=== PATIENT | female | born 1995 | race Caucasian/White ===

== ENCOUNTER 2018-01-11 05:30 | Emergency (ER) | payer OTHER ==
[2018-01-11 06:17] LABS: CONTROL LINE UCG INT CTR LINE PRESENT; URINE PREG TEST NEGATIVE (NEGATIVE)
[2018-01-11 06:20] LABS: KETONE, URINE AUTO RFX NEGATIVE (NEGATIVE); LEUKOCYTE ESTERASE UR AUTO RFX 2+ (NEGATIVE); MUCUS, URINE RFX LARGE (NEGATIVE); NITRITE, URINE AUTO RFX NEGATIVE (NEGATIVE); RBC, URINE AUTO RFX 16 /HPF (0-3); SPECIFIC GRAVITY UR AUTO RFX 1.024 (1.002-1.035); SQUAM EPITHELIAL CELL UR AURFX 41 /HPF (0-6); WBC, URINE AUTO RFX 143 /HPF (0-3)
[2018-01-11] MEDS: CIPROFLOXACIN 500 MG TAB PO (06:55)
[2018-01-11] MEDS: ACETAMINOPHEN 325 MG TAB PO (06:55)
== END 2018-01-11 07:20 | disposition home or self-care (01) ==
LOC: M ED 05:30
DX: N30.01 Acute cystitis with hematuria (principal); Z79.899 Other long term (current) drug therapy; Z88.0 Allergy status to penicillin
CPT/HCPCS: 84703